=== PATIENT | male | born 1980 | race American Indian/Alaskan Native ===

== ENCOUNTER 2016-06-18 04:09 | Emergency (ER) | payer OTHER ==
[2016-06-18 05:35] LABS: Basophils % (Auto) 0.8 % (0.0-1.8); Eosinophils % (Auto) 2.9 % (0.0-4.3); Hematocrit 43.7 % (35.5-45.6); Hemoglobin 14.4 gm/dl (11.8-15.2); Mean Corpuscular HGB Conc 33 % (32-34); Mean Corpuscular Hemoglobin 28 pg (28-32); Mean Corpuscular Volume 85 fl (84-94); Platelet Count 307 K/mm3 (140-440); Red Blood Count 5.17 M/mm3 (3.65-5.03); Red Cell Distribution Width 15.6 % (13.2-15.2); White Blood Count 6.2 K/mm3 (4.5-11.0)
[2016-06-18 05:44] LABS: INR 1.02 (0.87-1.13)
[2016-06-18 05:57] LABS: Alanine Aminotransferase 45 units/L (7-56); Albumin 4.2 g/dL (3.9-5); Albumin/Globulin Ratio 1.3 %; Alkaline Phosphatase 82 units/L (35-129); Anion Gap 19 mmol/L; Blood Urea Nitrogen 9 mg/dL (9-20); Calcium 8.9 mg/dL (8.4-10.2); Carbon Dioxide 21 mmol/L (22-30); Chloride 103.2 mmol/L (98-107); Glucose 88 mg/dL (75-100); Potassium 3.4 mmol/L (3.6-5.0); Sodium 140 mmol/L (137-145); Total Protein 7.4 g/dL (6.3-8.2)
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
[2016-06-18] MEDS ORDERED: NACL 0.9% 1000 ML 1,000 ML IV ONE (07:10)
[2016-06-18] MEDS ORDERED: ZOFRAN IV ONE (07:11)
[2016-06-18] MEDS ORDERED: TYLENOL PO ONE (07:11)
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
--- NOTE | 2016-06-18 09:39 | XRay Report ---
LEFT HIP, 2 views: History: Left hip pain. The bony architecture is intact without evidence of fracture or dislocation. No significant soft tissue abnormality is seen. IMPRESSION: Normal left hip.
[2016-06-18] MEDS ORDERED: NACL ONE (10:14)
--- NOTE | 2016-06-18 10:19 | XRay Report ---
LEFT FINGERS, 2 VIEWS History: Left finger pain. Findings: There is normal bone mineralization. No acute osseous findings or joint pathology is appreciated. The soft tissues are unremarkable. Impression: Unremarkable left fingers.
[2016-06-18 10:25] VITALS: BP 128/78
[2016-06-18 10:54] LABS: Bilirubin,Urine NEG (Negative); Blood,Urine NEG (Negative); Ketones,Urine NEG (Negative); Leukocyte Esterase,Urine SM (Negative); Mucus,Urine FEW /HPF; Nitrite,Urine NEG (Negative); Protein,Urine <15 mg/dL mg/dL (Negative); Urobilinogen,Urine < 2.0 mg/dL (<2.0)
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
== END 2016-06-18 13:30 | disposition home or self-care (01) ==
LOC: ED 04:09
DX: G44.319 Acute post-traumatic headache, not intractable (principal); F10.120 Alcohol abuse with intoxication, uncomplicated; M54.2 Cervicalgia; M25.552 Pain in left hip; F17.200 Nicotine dependence, unspecified, uncomplicated
CPT/HCPCS: 36415; 70450; 72125; 73130; 73140; 73502; 74177; 80053; 81001; 85025; 85610; 85730; 86850; 86900; 86901; 96361; 96374; 99285; G0480; J2405; J7030; Q9967; 80320